=== PATIENT | female | born 1995 | race Caucasian/White ===

== ENCOUNTER 2019-02-07 08:41 | Emergency (ER) | payer SELFPAY ==
[~2019-02-07] VITALS: Ht 160 cm; Wt 69.9 kg
--- NOTE | 2019-02-07 08:52 | NUR ---
PT AMBULATED TO BED 12.
[2019-02-07 08:54] VITALS: BP 112/92
--- NOTE | 2019-02-07 08:54 | NUR ---
Anu peters in EDM - 02/07/19 at 0905 by [facility] PT AMBULATED TO ED BED 12.
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
[2019-02-07] MEDS ORDERED: IBUPROFEN 800 MG TAB PO ONE (09:40)
--- NOTE | 2019-02-07 09:46 | NUR ---
Pt taken to x-ray via w/c.
[2019-02-07 11:32] VITALS: BP 110/85
--- NOTE | 2019-02-07 11:32 | NUR ---
Patient discharged with v/s stable. Written and verbal after care instructions given and explained. Patient alert, oriented and verbalized understanding of instructions. Ambulatory with steady gait. All questions addressed prior to discharge. ID band removed. Patient advised to follow up with PMD. Patient provided with work excuse for today. Copy of x-ray given to patient. Rx of Motrin 800mg given. Patient educated on indication of medication including possible reaction and side effects. Opportunity to ask questions provided and answered.
== END 2019-02-07 11:32 | disposition home or self-care (01) ==
LOC: MED 08:41
DX: M54.2 Cervicalgia (principal); R51 Headache; V49.88XA Car occupant (driver) (passenger) injured in other specified transport accidents, initial encounter; Y93.89 Activity, other specified; Y92.89 Other specified places as the place of occurrence of the external cause; Y99.2 Volunteer activity; Z04.1 Encounter for examination and observation following transport accident
CPT/HCPCS: 70250; 99283